=== PATIENT | female | born 1945 | race Caucasian/White ===

== ENCOUNTER 2023-09-01 21:57 | Inpatient (IN) | payer MEDICARE ==
[2023-09-02] MEDS ORDERED: Ondansetron ODT 4 MG TAB PO PRN (00:31)
[2023-09-02] MEDS ORDERED: HumaLOG 300 UNITS/3 ML VIAL SC PRN (00:31)
[2023-09-02] MEDS ORDERED: Dextrose 5% in Water 1,000 ML IV PRN (00:31)
[2023-09-02] MEDS ORDERED: Ondansetron PF 4 MG/2 ML Vial IVP PRN (00:31)
[2023-09-02] MEDS ORDERED: Dextrose 50% Abboject 50 ML SYRINGE SLOW IVP PRN (00:31)
[2023-09-02] MEDS ORDERED: Acetaminophen 650 MG Suppository PR PRN (00:31)
[2023-09-02] MEDS ORDERED: Glucagon 1 MG/ML KIT IM PRN (00:31)
[2023-09-02] MEDS ORDERED: Acetaminophen 325 MG TAB PO PRN (00:31)
[2023-09-02] MEDS ORDERED: Dexamethasone 10 MG in Sodium Chloride 0.9% 50 ML IVPB SCH (02:38)
[2023-09-02] MEDS: Dexamethasone 4 mg/ml Vial SLOW IVP SCH ×4 (03:45→21:19)
[2023-09-02 05:10] LABS: #Monocytes 0.2 thou/uL (0.11-0.59); #Neutrophils 10.3 thou/uL (1.40-6.50); %Basophils 0.1 % (0.0-1.0); %Lymphocytes 5.2 % (21.0-51.0); %Monocytes 1.8 % (0.0-10.0); %Neutrophils 92.1 % (42.0-75.0); Hematocrit 43.4 % (36.0-47.0); Mean Corpuscular HGB CONC 32.3 g/dL (32.0-36.0); Mean Platelet Volume 10.8 fL (7.4-10.4); Platelet Count 218 10x3/uL (130-400); RBC Distribution Width 13.1 % (11.5-14.5); Red Blood Cell (RBC) Count 4.52 mill/uL (4.20-5.40); White Blood Cell (WBC) Count 11.2 10x3/uL (4.8-10.8)
[2023-09-02 05:27] LABS: Anion Gap 17 mmol/L (10-20); BUN (Urea Nitrogen) 31 mg/dL (9.8-20.1); Calc. Creatinine Clearance 82 mL/min (70-130); Calcium 8.8 mg/dL (7.8-10.44); Carbon Dioxide 20 mmol/L (23-31); Chloride 110 mmol/L (98-107); Estimated GFR 61; Glucose 189 mg/dL (83-110); Sodium 143 mmol/L (136-145)
[2023-09-02] MEDS: dilTIAZem 125 MG in Sodium Chloride 0.9% 100 ML IVPB SCH ×2 (05:50→18:38)
[2023-09-02] MEDS ORDERED: Dexamethasone 4 mg/ml Vial SLOW IVP SCH ×2 (06:00→09:00)
[2023-09-02] MEDS ORDERED: Benzonatate 100 MG CAP PO PRN (07:44)
[2023-09-02] MEDS: glipiZIDE XL 5 mg ER.TAB PO SCH (10:44)
[2023-09-02] MEDS: dilTIAZem CD 180 MG CAP PO SCH (10:45)
[2023-09-02] MEDS: DULoxetine 30 MG CAP PO SCH (10:45)
[2023-09-02] MEDS: Carvedilol 6.25 MG TAB PO SCH ×2 (10:45→18:39)
[2023-09-02] MEDS ORDERED: Iopamidol-370 76% 500 ML MDV (1 ML CHARGE) ONE (10:57)
[2023-09-02] MEDS ORDERED: Magnevist 469MG/ML 20 ML VIAL ONE (11:04)
[2023-09-02 13:16] VITALS: BMI 41.4
[2023-09-02 16:52] LABS: Bacteria/HPF 4+ HPF (None Seen); RBC/HPF 0-3 HPF (0-3); Squamous Epithelial 0-3 HPF (0-3); WBC/HPF 21-50 HPF (0-3)
[2023-09-02] MEDS: cefTRIAXone\\ROCEPHIN 1 GM in Sodium Chloride 0.9% 100 ML IVPB SCH (18:37)
[2023-09-03] MEDS: Levothyroxine Sodium 25 MCG TAB PO SCH ×2 (05:10→05:15)
[2023-09-03] MEDS: Dexamethasone 4 mg/ml Vial SLOW IVP SCH ×4 (05:11→21:05)
[2023-09-03] MEDS: DULoxetine 30 MG CAP PO SCH (08:11)
[2023-09-03] MEDS: dilTIAZem CD 180 MG CAP PO SCH (08:11)
[2023-09-03] MEDS: Gemfibrozil 600 MG TAB PO SCH (08:14)
[2023-09-03] MEDS: Carvedilol 6.25 MG TAB PO SCH ×2 (08:14→17:27)
[2023-09-03] MEDS: glipiZIDE XL 5 mg ER.TAB PO SCH (08:14)
[2023-09-03] MEDS: HumaLOG 300 UNITS/3 ML VIAL SC PRN (12:28)
[2023-09-03] MEDS: cefTRIAXone\\ROCEPHIN 1 GM in Sodium Chloride 0.9% 100 ML IVPB SCH (17:27)
[2023-09-04] MEDS: Dexamethasone 4 mg/ml Vial SLOW IVP SCH ×4 (01:47→20:19)
[2023-09-04] MEDS: HumaLOG 300 UNITS/3 ML VIAL SC PRN (05:57)
[2023-09-04] MEDS: Levothyroxine Sodium 25 MCG TAB PO SCH (05:57)
[2023-09-04] MEDS: Gemfibrozil 600 MG TAB PO SCH (08:44)
[2023-09-04] MEDS: dilTIAZem CD 180 MG CAP PO SCH (08:44)
[2023-09-04] MEDS: glipiZIDE XL 5 mg ER.TAB PO SCH (08:44)
[2023-09-04] MEDS: Carvedilol 6.25 MG TAB PO SCH ×2 (08:44→17:19)
[2023-09-04] MEDS: DULoxetine 30 MG CAP PO SCH (08:44)
[2023-09-04] MEDS ORDERED: HumaLOG 300 UNITS/3 ML VIAL SC PRN (11:52)
[2023-09-04] MEDS: dilTIAZem 125 MG in Sodium Chloride 0.9% 100 ML IVPB SCH (13:51)
[2023-09-04] MEDS: cefTRIAXone\\ROCEPHIN 1 GM in Sodium Chloride 0.9% 100 ML IVPB SCH (17:19)
[2023-09-05] MEDS: Dexamethasone 4 mg/ml Vial SLOW IVP SCH ×2 (03:15→09:12)
[2023-09-05] MEDS: Levothyroxine Sodium 25 MCG TAB PO SCH (05:40)
[2023-09-05] MEDS ORDERED: Aspirin 81 mg Enteric Coated Tablet PO SCH (09:00)
[2023-09-05] MEDS: DULoxetine 30 MG CAP PO SCH (09:11)
[2023-09-05] MEDS: Gemfibrozil 600 MG TAB PO SCH (09:11)
[2023-09-05] MEDS: Carvedilol 6.25 MG TAB PO SCH (09:11)
[2023-09-05] MEDS: dilTIAZem CD 180 MG CAP PO SCH (09:11)
[2023-09-05] MEDS: glipiZIDE XL 5 mg ER.TAB PO SCH (09:12)
[2023-09-05 11:30] VITALS: BP 143/71; TEMP 97.4
== END 2023-09-05 14:09 | disposition hospice, home (50) | DRG 54 ==
LOC: 2NO 23:01 → OBSVTOIN 09-02 11:29
PROVIDERS: ADMIT Student in an Organized Health Care Education/Training Program; ATTEND Family Medicine
DX: C71.0 Malignant neoplasm of cerebrum, except lobes and ventricles (principal); G93.6 Cerebral edema; N39.0 Urinary tract infection, site not specified; G93.40 Encephalopathy, unspecified; Z68.41 Body mass index [BMI] 40.0-44.9, adult; I48.0 Paroxysmal atrial fibrillation; Z66 Do not resuscitate; Z51.5 Encounter for palliative care; E03.9 Hypothyroidism, unspecified; I10 Essential (primary) hypertension; E11.9 Type 2 diabetes mellitus without complications; E66.9 Obesity, unspecified; W18.30XA Fall on same level, unspecified, initial encounter; S90.32XA Contusion of left foot, initial encounter; B96.20 Unspecified Escherichia coli [E. coli] as the cause of diseases classified elsewhere; Z88.5 Allergy status to narcotic agent; Z79.84 Long term (current) use of oral hypoglycemic drugs; Z79.890 Hormone replacement therapy; Z79.899 Other long term (current) drug therapy; Z98.890 Other specified postprocedural states; Z80.3 Family history of malignant neoplasm of breast
CPT/HCPCS: 36415; 36416; 70450; 70553; 71260; 72125; 72170; 74177; 80048; 80053; 81015; 85025; 85610; 87077; 87086; 87186; 93005; 93306; 96374; 96375; 96376; A9579; G0378; J0696; J1100; J1160; J1815; J3490; Q9967